=== PATIENT | female | born 1935 | race Asian ===

== ENCOUNTER 2018-10-10 10:31 | Inpatient (IN) | payer MEDICARE, BC, OTHER ==
[2018-10-10] MEDS ORDERED: NACL 0.9% 3 ML SYG IV (11:30)
[2018-10-10] MEDS ORDERED: ONDANSETRON 4 MG INJ IV (11:30)
[2018-10-10] MEDS ORDERED: MIDAZOLAM (DRIP) 50 mg/50 mL 50 ML IV (12:00)
[2018-10-10] MEDS ORDERED: DEXTROSE 50% 50 ML SYRINGE IV ×2 (13:00)
[2018-10-10] MEDS ORDERED: GLUCAGON 1 MG INJ IM (13:00)
[2018-10-10] MEDS ORDERED: FENTAnyl (DRIP) 1000 mcg/100mL 100 ML IV (13:00)
[2018-10-10] MEDS ORDERED: GLUCOSE GEL 15 GRAM TUBE BUCCAL (13:00)
[2018-10-10] MEDS ORDERED: GLUCOSE GEL 15 GRAM TUBE PO ×2 (13:00)
[2018-10-10 13:01] LABS: ADD MAN DIFF? NO
[2018-10-10] MEDS: SOD CHLORIDE 0.9% 1,000 ML IV (13:03)
[2018-10-10 13:05] LABS: BASOPHILS % 0.2 % (0.0-2.0); EOSINOPHILS % 0.1 % (0.0-7.0); HEMATOCRIT 37.6 % (37.0-47.0); HEMOGLOBIN 12.5 g/dl (12.0-16.0); LYMPHOCYTES # 1.3 10^3/ul (0.8-2.9); LYMPHOCYTES % 16.3 % (15.0-51.0); MEAN CORPUSCULAR HEMOGLOBIN 31.3 pg (29.0-33.0); MEAN CORPUSCULAR HGB CONC 33.2 g/dl (32.0-37.0); MEAN PLATELET VOLUME 10.2 fl (7.4-10.4); MONOCYTE # 0.6 10^3/ul (0.3-0.9); MONOCYTES % 7.6 % (0.0-11.0); NEUTROPHIL # 6.1 10^3/ul (1.6-7.5); NEUTROPHILS % 75.1 % (39.0-77.0); PLATELET COUNT 197 10^3/UL (140-415); RED CELL DISTRIBUTION WIDTH 12.8 % (11.5-14.5)
[2018-10-10 13:05] LABS: WHITE BLOOD COUNT 8.1 10^3/ul (4.8-10.8)
[2018-10-10 13:25] LABS: INR 0.87; PROTIME 11.9 Sec (11.9-14.9); PT RATIO 0.9
[2018-10-10] MEDS: INSULIN ASPART [NOVOLOG] 3 ML PEN SC ×3 (13:25→20:43)
[2018-10-10 13:26] LABS: PARTIAL THROMBOPLASTIN TIME 23.2 Sec (23.0-35.0)
[2018-10-10 13:49] LABS: ALANINE AMINOTRANSFERASE 28 IU/L (13-69); ALBUMIN 4.3 g/dl (3.3-4.9); ALBUMIN/GLOBULIN RATIO 1.19; ALKALINE PHOSPHATASE 66 IU/L (42-121); ANION GAP 7 (5-13); ASPARTATE AMINO TRANSFERASE 61 IU/L (15-46); BILIRUBIN,INDIRECT 0.5 mg/dl (0-1.1); BILIRUBIN,TOTAL 0.5 mg/dl (0.2-1.3); BLOOD UREA NITROGEN 21 mg/dl (7-20); CALCIUM 9.8 mg/dl (8.4-10.2); CARBON DIOXIDE 31 mmol/L (21-31); CHLORIDE 103 mmol/L (97-110); CREATINE KINASE 793 IU/L (23-200); CREATININE 0.66 mg/dl (0.44-1.00); GLUCOSE 135 mg/dl (70-220); POTASSIUM 4.1 mmol/L (3.5-5.1); SODIUM 141 mmol/L (135-144); TOTAL PROTEIN 7.9 g/dl (6.1-8.1)
[2018-10-10 14:01] LABS: CK-MB 7.57 ng/ml (0.0-2.4); TROPONIN-I < 0.012 ng/ml (0.000-0.120)
[2018-10-10 14:10] LABS: PHOSPHORUS 3.4 mg/dl (2.5-4.9)
[2018-10-10 14:10] LABS: CHOL/HDL RATIO 2.7 RATIO; CHOLESTEROL 207 mg/dl (100-200); HDL CHOLESTEROL 75 mg/dl (33-92); LDL CHOLESTEROL,CALCULATED 116 mg/dl; MAGNESIUM 1.9 mg/dl (1.7-2.5); TRIGLYCERIDES 80 mg/dl (0-149)
[2018-10-10 14:15] LABS: FREE T4 (FREE THYROXINE) 1.68 ng/dl (0.85-1.93)
[2018-10-10] MEDS ORDERED: niCARdipine 25 MG in SOD CHLORIDE 0.9% 240 ML IV (16:00)
[2018-10-10] MEDS: PANTOPRAZOLE 40 MG INJ IV (17:37)
[2018-10-10] MEDS: LABETALOL HCL 20MG INJ IV (18:33)
[2018-10-10 20:09] LABS: Allen Test ACCEPTAB; Arterial Base Excess 0.4 mmol/L (-3.0-3); Arterial Blood Gas Oxygen Sat 98.9 mmHG (95.0-100.0); Arterial COHb 0.5 % (0.0-3.0); Arterial Fraction of Oxyhgb 98.4 % (93.0-99.0); Arterial MetHb 0 % (0.0-1.5); Arterial pCO2 35.1 mmhg (35-45); MODE VENT - AC; Site Right Radial
[2018-10-10] MEDS: ATORVASTATIN 40 MG TAB GTB (20:44)
[2018-10-10] MEDS ORDERED: LEVETIRACETAM 500 MG (PMX) 100 ML IVPB (21:00)
[2018-10-11] MEDS: INSULIN ASPART [NOVOLOG] 3 ML PEN SC ×4 (02:33→14:00)
[2018-10-11] MEDS: SOD CHLORIDE 0.9% 1,000 ML IV ×2 (02:36→16:08)
[2018-10-11] MEDS: LABETALOL HCL 20MG INJ IV ×4 (02:49→16:09)
[2018-10-11 05:24] LABS: ADD MAN DIFF? NO
[2018-10-11 05:29] LABS: BASOPHILS % 0.1 % (0.0-2.0); HEMOGLOBIN 11.1 g/dl (12.0-16.0); LYMPHOCYTES # 1.2 10^3/ul (0.8-2.9); LYMPHOCYTES % 15.6 % (15.0-51.0); MEAN CORPUSCULAR HEMOGLOBIN 31.7 pg (29.0-33.0); MEAN CORPUSCULAR HGB CONC 33.6 g/dl (32.0-37.0); MEAN CORPUSCULAR VOLUME 94.3 fl (82.0-101.0); MEAN PLATELET VOLUME 10.6 fl (7.4-10.4); MONOCYTE # 0.5 10^3/ul (0.3-0.9); MONOCYTES % 7.2 % (0.0-11.0); NEUTROPHIL # 5.7 10^3/ul (1.6-7.5); NEUTROPHILS % 76.8 % (39.0-77.0); PLATELET COUNT 187 10^3/UL (140-415); RED CELL DISTRIBUTION WIDTH 12.8 % (11.5-14.5)
[2018-10-11 05:29] LABS: WHITE BLOOD COUNT 7.5 10^3/ul (4.8-10.8)
[2018-10-11 05:51] LABS: CREATINE KINASE 1063 IU/L (23-200); MAGNESIUM 1.8 mg/dl (1.7-2.5)
[2018-10-11 05:51] LABS: PHOSPHORUS 3.1 mg/dl (2.5-4.9)
[2018-10-11 05:53] LABS: ALANINE AMINOTRANSFERASE 28 IU/L (13-69); ALBUMIN 3.8 g/dl (3.3-4.9); ALBUMIN/GLOBULIN RATIO 1.22; ALKALINE PHOSPHATASE 51 IU/L (42-121); ANION GAP 16 (5-13); ASPARTATE AMINO TRANSFERASE 49 IU/L (15-46); BILIRUBIN,INDIRECT 0.8 mg/dl (0-1.1); BILIRUBIN,TOTAL 0.8 mg/dl (0.2-1.3); BLOOD UREA NITROGEN 18 mg/dl (7-20); CALCIUM 9.5 mg/dl (8.4-10.2); CARBON DIOXIDE 23 mmol/L (21-31); CHLORIDE 102 mmol/L (97-110); CREATININE 0.73 mg/dl (0.44-1.00); GLUCOSE 139 mg/dl (70-220); POTASSIUM 4.1 mmol/L (3.5-5.1); SODIUM 141 mmol/L (135-144); TOTAL PROTEIN 6.9 g/dl (6.1-8.1)
[2018-10-11 05:54] LABS: CK INDEX 0.3; CK-MB 2.85 ng/ml (0.0-2.4); TROPONIN-I 0.028 ng/ml (0.000-0.120)
[2018-10-11] MEDS: LEVOTHYROXINE 75 MCG TAB NGT (06:27)
[2018-10-11] MEDS: PANTOPRAZOLE 40 MG INJ IV (06:27)
[2018-10-11 07:26] LABS: AADO2 Arterial 58.5 mmHg (7.0-24.0); Allen Test ACCEPTAB; Arterial Base Excess 0.6 mmol/L (-3.0-3); Arterial COHb 0 % (0.0-3.0); Arterial Fraction of Oxyhgb 97.8 % (93.0-99.0); Arterial HCO3 23.1 mmol/L (22.0-26.0); Arterial MetHb 0.2 % (0.0-1.5); Arterial pCO2 30.4 mmhg (35-45); MODE VENT - AC; Site Right Radial
[2018-10-11] MEDS: morphine (DRIP) 100 MG/100 ML 100 ML IV (19:42)
[2018-10-11] MEDS: LORAZEPAM 2 MG INJ IV (20:03)
[2018-10-12] MEDS: morphine (DRIP) 100 MG/100 ML 100 ML IV ×5 (00:46→21:53)
[2018-10-12] MEDS: SCOPOLAMINE 1.5 MG PATCH TRANSDERM (11:16)
[2018-10-12] MEDS ORDERED: ATROPINE 0.4 MG INJ IV (14:30)
[2018-10-12] MEDS: ATROPINE 1% 5 ML OPH SL ×3 (17:07→22:47)
[2018-10-12] MEDS: ACETAMINOPHEN 650 MG SUPP PR (20:07)
[2018-10-12] MEDS: ARTIFICIAL TEARS 15 ML OPH BOTH EYES (21:53)
[2018-10-13] MEDS: ACETAMINOPHEN 650 MG SUPP PR (01:57)
[2018-10-13] MEDS: morphine (DRIP) 100 MG/100 ML 100 ML IV ×4 (03:02→21:02)
[2018-10-13] MEDS: ARTIFICIAL TEARS 15 ML OPH BOTH EYES ×3 (09:18→21:03)
[2018-10-13] MEDS: ATROPINE 1% 5 ML OPH SL (13:31)
[2018-10-14] MEDS: morphine (DRIP) 100 MG/100 ML 100 ML IV ×4 (02:24→18:45)
[2018-10-14] MEDS: ATROPINE 1% 5 ML OPH SL ×3 (08:05→21:34)
[2018-10-14] MEDS: ARTIFICIAL TEARS 15 ML OPH BOTH EYES ×3 (09:00→21:34)
[2018-10-15] MEDS: ATROPINE 1% 5 ML OPH SL ×6 (00:15→21:05)
[2018-10-15] MEDS: morphine (DRIP) 100 MG/100 ML 100 ML IV ×5 (00:32→22:11)
[2018-10-15] MEDS: ARTIFICIAL TEARS 15 ML OPH BOTH EYES ×3 (08:58→21:05)
[2018-10-15] MEDS: SCOPOLAMINE 1.5 MG PATCH TRANSDERM (09:49)
[2018-10-15] MEDS: LORAZEPAM 2 MG INJ IV (16:43)
[2018-10-16] MEDS: ATROPINE 1% 5 ML OPH SL ×8 (00:56→21:35)
[2018-10-16] MEDS: morphine (DRIP) 100 MG/100 ML 100 ML IV ×4 (03:13→19:03)
[2018-10-16] MEDS: ARTIFICIAL TEARS 15 ML OPH BOTH EYES ×3 (08:24→20:56)
[2018-10-17] MEDS: morphine (DRIP) 100 MG/100 ML 100 ML IV ×3 (00:15→12:08)
[2018-10-17] MEDS: ATROPINE 1% 5 ML OPH SL ×6 (01:01→17:00)
[2018-10-17] MEDS: ARTIFICIAL TEARS 15 ML OPH BOTH EYES ×2 (09:20→13:55)
== END 2018-10-17 17:14 | disposition expired | DRG 64 ==
LOC: PP2 10-12 02:39 → ICU 10:31 → PP2 10-12 02:58 → 2NE 10-12 11:35
PROC: 5A1945Z Respiratory Ventilation, 24-96 Consecutive Hours (ICD-10-PCS; principal; 2018-10-10)
DX: I61.0 Nontraumatic intracerebral hemorrhage in hemisphere, subcortical (principal); G93.6 Cerebral edema; I69.354 Hemiplegia and hemiparesis following cerebral infarction affecting left non-dominant side; G93.40 Encephalopathy, unspecified; I61.5 Nontraumatic intracerebral hemorrhage, intraventricular; Z66 Do not resuscitate; Z51.5 Encounter for palliative care; E78.5 Hyperlipidemia, unspecified; E11.9 Type 2 diabetes mellitus without complications; I10 Essential (primary) hypertension; E03.9 Hypothyroidism, unspecified
CPT/HCPCS: 36600; 70450; 71045; 72040; 80053; 80061; 82550; 82553; 82803; 82962; 83036; 83735; 84100; 84439; 84443; 84484; 85025; 85610; 85730; 87081; 93306; 94002; 94003; 94770; 95819